=== PATIENT | male | born 1980 | race Caucasian/White ===

== ENCOUNTER 2019-11-26 10:23 | Emergency (ER) | payer SELFPAY ==
[~2019-11-26] VITALS: Ht 165.1 cm; Wt 90.7 kg
[2019-11-26 10:24] VITALS: BP 150/86; Ht 165.1 cm; Wt 90.7 kg
== END 2019-11-26 10:55 | disposition home or self-care (01) ==
LOC: ED 10:23
DX: S51.812D Laceration without foreign body of left forearm, subsequent encounter (principal); W25.XXXD Contact with sharp glass, subsequent encounter